=== PATIENT | female | born 1980 | race Caucasian/White ===

== ENCOUNTER → 2017-06-25 | Outpatient (CLI) | payer MEDICAID ==
[2017-06-25 11:51] LABS: HEMOGLOBIN 13.1 g/dL (12.2-16.2); LYMPH # 1.8 K/mm3 (0.7-4.5); LYMPH % 25.9 % (10-50.0)
[2017-06-25 12:01] LABS: BUN 9 mg/dL (7-18)
[2017-06-25 12:02] LABS: GFR (ESTIMATED) 80 ML/MIN (59-)
== END ==
LOC: LAB 10:19
PROVIDERS: Nurse Practitioner Family
DX: E11.65 Type 2 diabetes mellitus with hyperglycemia (principal); I10 Essential (primary) hypertension; E03.8 Other specified hypothyroidism; E55.9 Vitamin D deficiency, unspecified

== ENCOUNTER → 2017-07-02 | Outpatient (CLI) | payer MEDICAID ==
[~2017-07-02] MED LIST: CIPRO 500MG TA500 MG PO; FLEXERIL10 MG PO; LEVOTHYROXINE0.05 M2 PO; MOTRIN 400MG.400 MG PO; PREDNISONE 20MG20 MG PO
--- NOTE | 2017-07-02 10:24 | RADIOLOGY REPORT PS360 ---
US RUQ-(ABD LTD)1ORGAN/QUAD/FU COMPARISON: None HISTORY: Elevated liver enzymes, diabetic TECHNIQUE: Targeted ultrasound right upper quadrant FINDINGS: The liver is normal size and shows overall and somewhat coarsened echogenicity suggesting diffuse fatty infiltration. The gallbladder is normal in size and there may be a trace amount biliary sludge but no gallstones are seen. The common bile duct is normal in caliber. The right kidney measures 9.9 x 5.0 x 6.0 cm. There is a focal echo midpole which may be a small calculus. There is normal vascularity to the right kidney. IMPRESSION: Hepatic steatosis along with trace amount biliary sludge
== END ==
LOC: RAD 08:00
DX: R74.8 Abnormal levels of other serum enzymes (principal)